=== PATIENT | male | born 1980 | race Two or more races ===

== ENCOUNTER 2022-01-18 21:26 | Emergency (ER) | payer MEDICAID, OTHER ==
[~2022-01-18] VITALS: Ht 165.1 cm; Wt 75.3 kg
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
[2022-01-18] MEDS ORDERED: LIDOCAINE 1%-EPI 1:100,000 20 ML VIAL ONE (21:52)
--- NOTE | 2022-01-18 21:52 | NUR ---
PATIENT RETURNED FROM CT
[2022-01-18] MEDS ORDERED: TDAP [DIPH/PERTUSSIS/TET] 0.5 ML VIAL IM ONE (22:00)
[2022-01-18 22:13] VITALS: BP 124/70
--- NOTE | 2022-01-18 23:07 | NUR ---
PT ambulatory with a steady gait
[2022-01-18] MEDS ORDERED: KETO10TA2 PO (23:13)
[2022-01-18] MEDS ORDERED: AMOX-430 PO (23:26)
--- NOTE | 2022-01-18 23:30 | NUR ---
Patient discharged to home in stable condition. Written and verbal after care instructions given. Patient verbalizes understanding of instruction.
== END 2022-01-18 23:30 | disposition home or self-care (01) ==
LOC: ER 21:28
DX: S02.2XXA Fracture of nasal bones, initial encounter for closed fracture (principal); S01.21XA Laceration without foreign body of nose, initial encounter; Z79.899 Other long term (current) drug therapy; Y04.2XXA Assault by strike against or bumped into by another person, initial encounter; Y93.66 Activity, soccer; Y92.89 Other specified places as the place of occurrence of the external cause; Y99.8 Other external cause status
CPT/HCPCS: 99284; 70450; 12011; 70486; A6403 ×2; J3490